=== PATIENT | female | born 2005 | race Caucasian/White ===

== ENCOUNTER 2024-05-17 15:53 | Emergency (ER) | payer BC ==
[2024-05-17] MEDS ORDERED: ONDANSETRON 4 MG/2 ML VIAL ONE (16:26)
[2024-05-17] MEDS ORDERED: LIDOCAINE VISCOUS 2% 15 ML CUP ONE (16:45)
[2024-05-17] MEDS ORDERED: diphenhydrAMINE ELIXIR 25 MG/10 ML CUP ONE (16:45)
[2024-05-17] MEDS ORDERED: SODIUM CHLORIDE 0.9% 1,000 ML BAG ONE (16:45)
[2024-05-17] MEDS ORDERED: MAG HYDROX/AL HYDROX/SIMETH 30 ML CUP ONE (16:45)
[2024-05-17] MEDS ORDERED: PANTOPRAZOLE 40 MG/10 ML VIAL ONE (18:49)
[2024-05-17] MEDS ORDERED: ONDANSETRON 4 MG ODT STARTER PACK 2 TAB BTL ONE (19:04)
[2024-05-17] MEDS ORDERED: ONDANSETRON ODT 4 MG TAB ONE (19:05)
== END 2024-05-17 19:10 | disposition home or self-care (01) ==
LOC: EC 15:53
DX: T43.211A Poisoning by selective serotonin and norepinephrine reuptake inhibitors, accidental (unintentional), initial encounter (principal)
CPT/HCPCS: 96361; 96374; 96375; 99283